=== PATIENT | male | born 1935 | race Hispanic/Latino ===

== ENCOUNTER 2019-06-18 08:42 | Emergency (ER) | payer OTHER ==
[~2019-06-18] VITALS: Ht 167.6 cm; Wt 59.9 kg
[~2019-06-18 08:42] MED LIST: CILOSTAZOL100 MG PO; DOXYCYCLINE HY100 MG PO; FLOMAX0.4 MG PO; GABAPENTIN300 MG PO; LEVAQUIN500 MG PO; LRT10 PO; PREDNISOLONE ACE5 ML OD; PREDNISONE20 MG PO; TRANDATE100 MG PO; TYLENOL # 31 EA PO; VASOTEC10 M1 PO; VERAPAMIL ER120 MG PO
[2019-06-18] MEDS ORDERED: SODIUM CHLORIDE 0.9% 1000ML 1,000 ML IV STA (08:55)
[2019-06-18 09:31] LABS: BASOPHILS # (AUTO) 0.1 (0.0-0.1); BASOPHILS % 0.4 % (0.0-1.0); EOSINOPHILS # (AUTO) 0.1 (0.0-0.4); EOSINOPHILS % 0.9 % (0.0-6.0); HEMOGLOBIN 12.5 g/dL (14.0-18.0); LYMPHOCYTES % 7.6 % (18.0-39.1); MEAN CORPUSCULAR HEMOGLOBIN 28.8 pg (28-32); MEAN CORPUSCULAR HGB CONC 34.7 g/dL (31-35); MEAN CORPUSCULAR VOLUME 82.9 fL (81-99); MONOCYTES # (AUTO) 0.6 (0.2-0.8); MONOCYTES % 4.2 % (4.4-11.3); NEUTROPHILS # (AUTO) 11.6 (2.1-6.9); NEUTROPHILS % 86.4 % (38.7-80.0); PLATELET COUNT 259 x10e3/uL (140-360); RED BLOOD COUNT 4.34 x10e6/uL (4.3-5.7); RED CELL DISTRIBUTION WIDTH 15.1 % (11.7-14.4)
[2019-06-18 09:33] LABS: BILIRUBIN,URINE NEGATIVE (NEGATIVE); CLARITY,URINE CLEAR (CLEAR); COLOR,URINE YELLOW (YELLOW); KETONES,URINE NEGATIVE (NEGATIVE); LEUKOCYTE ESTERASE ,URINE NEGATIVE (NEGATIVE); NITRITE,URINE NEGATIVE (NEGATIVE); PROTEIN,URINE DIPSTICK NEGATIVE (NEGATIVE); URINE UROBILINOGEN 0.2 mg/dL (0.2 - 1)
[2019-06-18 09:44] LABS: STREPTOCOCCUS GRP A ANTIGEN NEGATIVE (NEGATIVE)
[2019-06-18 09:49] LABS: INR 0.99; PARTIAL THROMBOPLASTIN TIME 28.6 seconds (23.8-35.5); PROTHROMBIN TIME 13.6 seconds (11.9-14.5)
[2019-06-18 09:53] LABS: INFLUENZAE A&B ANTIGEN (RAPID) NEGATIVE (NEGATIVE)
[2019-06-18 09:55] LABS: ALANINE AMINOTRANSFERASE 13 IU/L (0-55); ALBUMIN 3.5 g/dL (3.5-5.0); ALKALINE PHOSPHATASE 108 IU/L (40-150); ANION GAP 15.7 mmol/L (8-16); BLOOD UREA NITROGEN 17 mg/dL (7-26); BUN/CREATININE RATIO 19 (6-25); CALCIUM 9.2 mg/dL (8.4-10.2); CARBON DIOXIDE 21 mmol/L (22-29); CHLORIDE 104 mmol/L (98-107); CREATINE KINASE 129 IU/L (30-200); CREATININE, SERUM 0.88 mg/dL (0.72-1.25); EST GLOMERULAR FILTRATION RATE > 60 ML/MIN (60-); GLUCOSE 96 mg/dL (74-118); MAGNESIUM 1.7 MG/DL (1.3-2.1); POTASSIUM 3.7 mmol/L (3.5-5.1); SODIUM 137 mmol/L (136-145)
[2019-06-18 09:57] LABS: BACTERIA,URINE RARE /HPF; EPITHELIAL CELLS,URINE RARE /LPF; RBC,URINE 0-5 /HPF (0-5); WBC,URINE (MAN) 0-5 /HPF (0-5)
--- NOTE | 2019-06-18 09:57 | Diagnostic Imaging Report ---
EXAMINATION: PA and lateral views of the chest. COMPARISON: None CLINICAL HISTORY: Fever and chills for 2 days DISCUSSION: Lines/tubes: None. Lungs: Hyperinflated lungs. Patchy airspace opacity in the right lower lung, best seen in the lateral view. Ill-defined 8 mm nodular density projecting in the posterior aspect of the right eighth rib in one of the AP views is not well seen in the other, and may represent summation of vessels shadows. Rest of the lungs is grossly clear. Pleura: Mild blunting of the right posterior costophrenic sulcus, which may reflect low volume pleural effusion. Heart and mediastinum: Cardiomediastinal silhouette is unremarkable. Pulmonary vasculature is normal. Bones and soft tissues: No acute bony abnormalities. Degenerative changes in the thoracic spine IMPRESSION: 1. Findings likely represent pneumonia given the clinical history. Recommend chest PA and lateral in 4-6 weeks after appropriate treatment to document resolution. 2. Ill-defined 8 mm nodular density in the right mid lung may represent summation of vessels shadows. This can also be reevaluated with the above described chest PA and lateral. Signed by: Dr. Chris Hung M.D. on 06/18/2019 9:53 AM
[2019-06-18] MEDS ORDERED: LEVOFLOXACIN 500 MG TAB PO ONE (10:30)
[2019-06-18 11:12] VITALS: BP 130/68
== END 2019-06-18 11:19 | disposition home or self-care (01) ==
LOC: ER 08:42
DX: J15.9 Unspecified bacterial pneumonia (principal); I10 Essential (primary) hypertension
CPT/HCPCS: 36415; 71046; 80053; 81001; 82550; 82553; 83518; 83605; 83735; 84484; 85025; 85610; 85730; 87040; 87070; 87086; 87400; 93005; 99284; J7030